=== PATIENT | male | born 1970 | race Caucasian/White ===

== ENCOUNTER 2019-01-06 01:09 | Observation (INO) ==
[~2019-01-06 01:09] MED LIST: ASPIRIN ONE
[2019-01-06] MEDS ORDERED: ASPIRIN PR ONE (01:18)
[2019-01-06] MEDS ORDERED: ASPIRIN PO ONE (01:18)
--- NOTE | 2019-01-06 01:22 | ED EKG INTERP ---
This chart was entered by Dior Henry Scribe, acting as scribe for Nguyen Hung MD. EKG Interpretation - EKG Time of EKG reading by physician:: 01:10 EKG Read and Signed by:: Nguyen Hung EKG Interpretation (*Must complete 3 of following elements*): Normal Rate: 73 Rhythm: nsr [place]: normal QRS: normal CA Interval: normal ST Wave: normal Attestation - Physician/ JAJA Attestation Patient care was provided by Advanced Practice Provider:: No The physician spent face to face time with patient:: Yes Advanced Practice Provider documentation review:: Supervising physician onsite and consulted in the evaluation and care of this patient. The physician did have a face to face encounter with the patient. This chart was documented by the indicated scribe, (Dior Henry, Rosamaria) and accurately reflects the services I performed and decisions made by Abhilash tracy Mai Huu, MD, as attested by the provider's signature.
[2019-01-06] MEDS ORDERED: MORPHINE IV ONE (01:27)
--- NOTE | 2019-01-06 01:27 | PROVIDER DOCUMENTATION ---
HPI-Chest Pain - General Chief Complaint: Chest Pain Stated Complaint: CHEST PAIN Time Seen by Provider: 01/06/19 01:19 Source: patient Allergies/Adverse Reactions: Patient Allergies Allergy/AdvReac Type Severity Reaction Status Date / Time No Known Allergies Allergy Verified 01/06/19 01:15 Home Medications: Home Medication List Medication Instructions Recorded Confirmed Last Taken Type Benazepril HCl 20 mg PO DAILY 01/06/19 01/06/19 Unknown History Hydrochlorothiazide 25 mg PO DAILY 01/06/19 01/06/19 Unknown History - History of Present Illness-CP Nature of Presenting Problem: 48 y/o male with history of HTN, Ex-smoker presented with chest pain associated with diaphoresis, and dyspnea, patient said the pain was sudden and steady, he felt tightness on his chest, hard to take deep breath Location: reports: substernal, central Chest Pain Radiation: reports: no radiation Quality of Pain: reports: tightness Severity in ED: moderate Onset/Duration: abrupt, 1/2 hour ago Timing: still present Context/Activities at Onset: reports: none Modifying Factors: improves with: nothing Associated Symptoms: reports: diaphoresis, shortness of breath. denies: abdominal pain Nitro Today/Relief: no nitro taken today Aspirin Treatment Today: no aspirin today Prior Chest Pain/Cardiac Workup: reports: no prior chest pain Similar Symptoms Previously?: No Recently Seen Here or By Another Healthcare Provider: No Review of Systems - Adult - REVIEW OF SYSTEMS - ADULT Constitutional: denies: fever Eyes: reports: no symptoms reported Ears, Nose, Mouth & Throat: reports: no symptoms reported Cardiovascular: reports: chest pain, palpitations Respiratory: reports: shortness of breath Gastrointestinal: reports: no symptoms reported, nausea Genitourinary: reports: no symptoms reported Musculoskeletal: reports: no symptoms reported Integumentary: reports: no symptoms reported Neurological: reports: no symptoms reported Psychiatric: reports: no symptoms reported Endocrine: reports: no symptoms reported Hematologic/Lymphatic: reports: no symptoms reported Allergic/Immunologic: reports: no symptoms reported Past History - Adult - PAST MEDICAL HISTORY-ADULT Review of Records: reports: Nursing Assessment Review Cardiovascular: reports: HTN Physical Exam-General - PHYSICAL EXAM-ADULT Initial Vital Signs Reviewed: Yes - CONSTITUTIONAL General Appearance: alert, no apparent distress - EYES Eyes: PERRL/EOMI - HEAD, EARS, NOSE, MOUTH & THROAT HENMT: normocephalic/atraumatic - NECK Neck: non-tender, full range of motion - RESPIRATORY Respiratory: chest non-tender, lungs clear, normal breath sounds - CARDIOVASCULAR Cardiovascular: normal peripheral pulses, regular rate, rhythm, no edema, no gallop, no JVD, no murmur - GASTROINTESTINAL (ABDOMEN) Abdominal Exam: normal bowel sounds, non tender - LYMPHATIC Lymphatic: no adenopathy - MUSCULOSKELETAL Back Exam: normal inspection, no CVA tenderness, no vertebral tenderness Extremity: normal range of motion, non-tender - SKIN Integumentary: warm/dry, diaphoresis - NEUROLOGIC Neurologic: assignment manager II-XII nml as tested, grossly normal, no motor/sensory deficits - PSYCHIATRIC Psych/Mental Status: normal mood/affect - HEART Score HEART Score: History: Highly Suspicious HEART Score: ECG: Normal HEART Score: Age: 45-65 Years HEART Score: Risk Factors for Atherosclerotic Disease: 1 or 2 Risk Factors HEART Score: Troponin: < or = Normal Limit Total HEART Score:: 4 Progress - PLAN OF CARE/RESULTS Progress/Plan/Lab Results: Vital Signs - 8 hr 01/06/19 01:11 Pulse Rate 73 Respiratory Rate 28 H Blood Pressure 148/111 O2 Sat by Pulse Oximetry 99 Laboratory Results - last 24 hr 01/06/19 01/06/19 01/06/19 01:20 01:20 01:20 WBC 6.54 RBC 4.94 Hgb 14.3 Hct 42.0 MCV 85.0 MCH 28.9 MCHC 34.0 RDW Std Deviation 14.4 Plt Count 205 MPV 11.0 H Immature Gran % (Auto) 0.3 Neut % (Auto) 52.5 Lymph % (Auto) 32.4 [place] % (Auto) 10.6 H Eos % (Auto) 3.7 Baso % (Auto) 0.5 Immature Gran # (Auto) 0.02 Neut # (Auto) 3.44 Lymph # (Auto) 2.12 [place] # (Auto) 0.69 H Eos # (Auto) 0.24 Baso # (Auto) 0.03 PT INR PTT (Actin FS) Sodium 141 Potassium 3.9 Chloride 100 Carbon Dioxide 26 Anion Gap 15 BUN 16 Creatinine 1.1 Estimated GFR/1.73 m2 > 60 BUN/Creatinine Ratio 15 Glucose 96 Calculated Osmolality 282 Calcium 9.6 Total Bilirubin 0.40 AST 21 ALT 23 Alkaline Phosphatase 94 Creatine Kinase 148 Troponin T Pob-Y-Gvlpxksqmgh Pept 29 Total Protein 6.7 Albumin 4.4 Globulin 2.0 Albumin/Globulin Ratio 2.0 Lipase 01/06/19 01/06/19 01/06/19 01:20 01:20 01:20 WBC RBC Hgb Hct MCV MCH MCHC RDW Std Deviation Plt Count MPV Immature Gran % (Auto) Neut % (Auto) Lymph % (Auto) [place] % (Auto) Eos % (Auto) Baso % (Auto) Immature Gran # (Auto) Neut # (Auto) Lymph # (Auto) [place] # (Auto) Eos # (Auto) Baso # (Auto) PT 11.8 INR 0.83 PTT (Actin FS) 28.9 Sodium Potassium Chloride Carbon Dioxide Anion Gap BUN Creatinine Estimated GFR/1.73 m2 BUN/Creatinine Ratio Glucose Calculated Osmolality Calcium Total Bilirubin AST ALT Alkaline Phosphatase Creatine Kinase Troponin T < 0.010 Yng-Z-Fusthpbmlwo Pept Total Protein Albumin Globulin Albumin/Globulin Ratio Lipase 24 01/06/19 01/06/19 03:32 03:32 WBC RBC Hgb Hct MCV MCH MCHC RDW Std Deviation Plt Count MPV Immature Gran % (Auto) Neut % (Auto) Lymph % (Auto) [place] % (Auto) Eos % (Auto) Baso % (Auto) Immature Gran # (Auto) Neut # (Auto) Lymph # (Auto) [place] # (Auto) Eos # (Auto) Baso # (Auto) PT INR PTT (Actin FS) Sodium Potassium Chloride Carbon Dioxide Anion Gap BUN Creatinine Estimated GFR/1.73 m2 BUN/Creatinine Ratio Glucose Calculated Osmolality Calcium Total Bilirubin AST ALT Alkaline Phosphatase Creatine Kinase 137 Troponin T < 0.010 Twy-N-Vifacxqwfpo Pept Total Protein Albumin Globulin Albumin/Globulin Ratio Lipase Orders Category Date Time Status Cardiac Monitoring DIRECTED Care 01/06/19 01:18 Active Oxygen Therapy- ED Nursing DIRECTED Care 01/06/19 01:18 Active Saline Loc NOW Care 01/06/19 01:18 Active CHEST-2 VIEWS [RAD] Stat Exams 01/06/19 01:18 Taken CTA [CT ANGIOGRM PULMONARY ARTERIES] [CT] Stat Exams 01/06/19 01:56 Taken CBC WITH ELECTRONIC DIFF [HEME] Stat Lab 01/06/19 01:20 Completed CK PROFILE [SP CHEM] Stat Lab 01/06/19 01:20 Completed CK PROFILE [SP CHEM] Stat Lab 01/06/19 03:32 Completed COMPREHENSIVE METABOLIC PANEL [CHEM] Stat Lab 01/06/19 01:20 Completed LIPASE [CHEM] Stat Lab 01/06/19 01:20 Completed PRO B-NATRIURETIC PEPTIDE Stat Lab 01/06/19 01:20 Completed PROTIME WITH INR [COAG] Stat Lab 01/06/19 01:20 Completed PTT [COAG] Stat Lab 01/06/19 01:20 Completed TROPONIN T Stat Lab 01/06/19 01:20 Completed TROPONIN T Stat Lab 01/06/19 03:32 Completed Aspirin Med 01/06/19 01:18 Discontinued 300 mg DE NOW ONE Aspirin Med 01/06/19 01:09 Discontinued 325 mg .ROUTE .STK-MED ONE Aspirin Med 01/06/19 01:18 Discontinued 325 mg PO NOW ONE Morphine Med 01/06/19 01:27 Discontinued 4 mg IV NOW ONE Nitroglycerin Sl [Nitroglycerin] Med 01/06/19 01:28 Discontinued 0.4 mg SL NOW ONE Ondansetron [Zofran] Med 01/06/19 01:28 Discontinued 4 mg IV NOW ONE chest [CP/SOB/Palp >45 yrs of Age] Stat Oth 01/06/19 01:18 Ordered EKG [EKG] Stat Ther 01/06/19 01:18 Ordered EKG [EKG] Stat Ther 01/06/19 01:25 Ordered EKG [EKG] Stat Ther 01/06/19 03:34 Ordered Result Diagrams: 01/06/19 01:20 01/06/19 01:20 - CT/MRI 1 CT Study: Thorax (negative for PE, dissection or aneurysm) - CONSULTS/PCP/HOSPITALIST Notification #1 *Consult/PCP/Hospitalist*: Dr Davalos Time Discussed: 04:18 Consult Disposition: Admit Departure - Departure Date of Disposition Decision: 01/06/19 Time of Disposition Decision: 04:17 DIAGNOSIS: Chest pain Disposition: ADMITTED INPATIENT 09 Certified Medical Emergency: Emergent Condition: Good Referrals and Follow-Ups: None,PCP [Primary Care Provider] - - Critical Care Note This patient required my direct & personal management of CC.: No Attestation - Physician/ JAJA Attestation Patient care was provided by Advanced Practice Provider:: No The physician spent face to face time with patient:: Yes Advanced Practice Provider documentation review:: Supervising physician onsite and consulted in the evaluation and care of this patient. The physician did have a face to face encounter with the patient.
[2019-01-06] MEDS ORDERED: ZOFRAN IV ONE (01:28)
[2019-01-06] MEDS ORDERED: NITROGLYCERIN SL ONE (01:28)
[2019-01-06 01:33] LABS: BASO# 0.03 X1000 (0.0-0.2); BASO% 0.5 % (0.0-0.8); EOS# 0.24 X1000 (0.0-0.7); EOS% 3.7 % (0.0-10.0); HEMOGLOBIN 14.3 g/dL (14.0-18.0); IMM GRAN# 0.02 X1000 (0.0-0.04); IMM GRAN% 0.3 % (0.0-0.5); LYMPH# 2.12 X1000 (1.2-3.4); LYMPH% 32.4 % (20.5-51.1); MCH 28.9 PG (27-31); MONO# 0.69 X1000 (0.11-0.59); MONO% 10.6 % (1.7-9.3); NEUT# 3.44 X1000 (1.4-6.5); NEUT% 52.5 % (42.2-75.2); PLT 205 X1000 (130-400); RBC 4.94 XMIL (4.7-6.1); RDW 14.4 % (11.5-14.5); WBC 6.54 X1000 (4.8-10.8)
[2019-01-06 01:37] LABS: INR 0.83; PROTIME 11.8 Seconds (11.0-16.0)
[2019-01-06 01:38] LABS: PTT 28.9 Seconds (22.3-41.8)
[2019-01-06 01:48] LABS: AGAP 15; ALBUMIN 4.4 g/dL (3.5-5.0); ALKALINE PHOSPHATASE 94 U/L (32-122); BUN 16 mg/dL (8-22); CALCIUM 9.6 mg/dL (8.8-10.2); CHLORIDE 100 mmol/L (98-107); CK PROFILE 148 U/L (24-204); COSMO 282; CREATININE 1.1 mg/dL (0.7-1.2); ESTIMATED GFR > 60; GLUCOSE 96 mg/dL (70-104); GOT 21 U/L (10-34); GPT 23 U/L (10-44); POTASSIUM 3.9 mmol/L (3.5-5.1); SODIUM 141 mmol/L (136-145); TCO2 26 mmol/L (25-35); TOTAL PROTEIN 6.7 g/dL (6.3-8.3)
[2019-01-06] MEDS ORDERED: ZOFRAN IV PRN (04:21)
--- NOTE | 2019-01-06 07:18 | Diag Imaging Result Doc PS360 ---
EXAM: CT ANGIOGRM PULMONARY ARTERIES - 01/06/2019 HISTORY: chest pain TECHNIQUE: CT angiogram pulmonary arteries with intravenous contrast. Axial, 2-D coronal MIP, and 3-D MIP images are obtained. COMPARISON: None. FINDINGS: There are no filling defects identified pulmonary arteries. There is no indication of aortic dissection. The lungs appear essentially clear except for mild dependent atelectasis. There is no consolidation, pleural effusion, or pneumothorax identified. There are no abnormally enlarged mediastinal lymph nodes identified. Included sections of the upper abdomen show apparent hepatomegaly with fatty infiltration of liver. There is uncomplicated diverticulosis at the visualized colon. IMPRESSION: No evidence of pulmonary embolism. No evidence of pneumonia. No pneumothorax. The on-call radiologist provided preliminary results at 2:44 AM on 01/06/2019. Electronically signed by Enzo Briseno 01/06/2019 7:16 AM
--- NOTE | 2019-01-06 07:20 | Diag Imaging Result Doc PS360 ---
EXAM: CHEST-2 VIEWS - 01/06/2019 HISTORY: chest pain TECHNIQUE: Chest two views COMPARISON: None. FINDINGS: Heart size appears within normal limits. Inspiration is mildly shallow, with associated mild crowding of basilar markings. The remainder of the lungs appear clear. There is no pleural effusion or pneumothorax identified. IMPRESSION: Somewhat shallow inspiration, with mild crowding of basilar markings. No other evidence of acute disease. Electronically signed by Enzo Briseno 01/06/2019 7:18 AM
[2019-01-06] MEDS ORDERED: TORADOL IV PRN (07:58)
--- NOTE | 2019-01-06 09:45 | EKG Report ---
Test Performed on : 01/06/2019 03:22:05 AM Test Reason : CP Blood Pressure : / mmHG Vent. Rate : 067 BPM Atrial Rate : 067 BPM P-R Int : 136 ms QRS Dur : 096 ms QT Int : 418 ms P-R-T Axes : 050 017 050 degrees QTc Int : 441 ms Normal sinus rhythm. Nonspecific T wave abnormality Abnormal ECG When compared with ECG of 06-JAN-2019 01:17, (Unconfirmed) No significant change was found Unconfirmed Result
--- NOTE | 2019-01-06 09:46 | EKG Report ---
Test Performed on : 01/06/2019 01:17:05 AM Test Reason : CP Blood Pressure : / mmHG Vent. Rate : 078 BPM Atrial Rate : 078 BPM P-R Int : 120 ms QRS Dur : 084 ms QT Int : 396 ms P-R-T Axes : 061 061 072 degrees QTc Int : 451 ms Normal sinus rhythm. Normal ECG No previous ECGs available Unconfirmed Result
--- NOTE | 2019-01-06 09:47 | EKG Report ---
Test Performed on : 01/06/2019 01:10:43 AM Test Reason : CP Blood Pressure : / mmHG Vent. Rate : 073 BPM Atrial Rate : 073 BPM P-R Int : 130 ms QRS Dur : 084 ms QT Int : 392 ms P-R-T Axes : 053 050 060 degrees QTc Int : 431 ms Normal sinus rhythm. Normal ECG No previous ECGs available Unconfirmed Result
--- NOTE | 2019-01-06 10:56 | EKG Report ---
Test Performed on : 01/06/2019 10:52:17 AM Test Reason : chest pain Blood Pressure : / mmHG Vent. Rate : 083 BPM Atrial Rate : 083 BPM P-R Int : 130 ms QRS Dur : 102 ms QT Int : 374 ms P-R-T Axes : 056 026 063 degrees QTc Int : 439 ms Normal sinus rhythm. ST elevation, consider inferior injury or acute infarct ACUTE AK / STEMI Abnormal ECG When compared with ECG of 06-JAN-2019 03:22, (Unconfirmed) No significant change was found Unconfirmed Result
--- NOTE | 2019-01-06 15:37 | CARDIOLOGY CONSULTATION ---
DATE: 01/06/2019 HISTORY OF PRESENT ILLNESS: Mr. Oliver is a 48-year-old white male with a history of hypertension, tobacco abuse. He quit December 17. He presented with a complaint of shortness of breath and pressure/tightness in his chest that began last night while sitting on the couch. This has persisted continuously since that time with some waxing and waning. This morning, he has a lot of discomfort to palpation of the chest area. There was never any exertional component to this. He has not had any recent fevers. 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 He denies any orthopnea. He has not had any other exertional chest pains. PAST MEDICAL HISTORY: Significant for hypertension. He is a patient of Dr. Page. He has no documented diagnosis of COPD, but has smoked for 30 to 35 years. SOCIAL HISTORY: He is recently . He recently quit smoking around 3 weeks ago after a 30 to 35 year-history of smoking. 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 FAMILY HISTORY: Significant for hypertension, as well as coronary disease in both parents. REVIEW OF SYSTEMS: A 10 system review of systems is negative, except for those things mentioned in HPI. PHYSICAL EXAMINATION: Vital Signs: He is afebrile. His heart rate is 90. His blood pressure is 108/61. General: He is in no acute distress. HEENT: Oropharynx is moist. Normal dentition. Eye examination shows pink conjunctivae, white sclerae. Neck: Examination shows no obvious thyromegaly or thyroid tenderness. Cardiovascular: He sounds to be in a regular rate and rhythm. He has no obvious murmurs. He has no S3. He has no lower extremity edema. Chest: Exam is notable for prominent bilateral end-expiratory wheezes. He has no real increased work of breathing. Abdomen: Soft, nontender, nondistended. He has no obvious organomegaly. Skin Exam: Warm and dry throughout without any rashes. Neurological: Moving all extremities well. He has no lateralizing deficits. PERTINENT DATA: His EKG on the twenty-first at 1:17 in the morning shows sinus rhythm, no ischemic changes. Second EKG occurring at 1:10 a.m. shows sinus rhythm, no signs of ischemic changes. EKG occurring at 3:22 shows sinus rhythm, no ischemic changes. No signs of injury. Final EKG at 10:52 this a.m. shows sinus rhythm, no ischemic changes, no acute signs of an injury pattern. His pulmonary arteriogram shows no evidence of pneumonia or pulmonary embolism. LAB DATA: Shows a white count of 6.5, hematocrit 42, platelet count 205. Sodium 141, potassium 3.9. BUN 16, creatinine is 1.1. His proBNP is normal. His cardiac enzymes have been negative times multiple sets. ASSESSMENT: Mr. Oliver is a 48-year-old gentleman, who presented with symptoms of chest tightness and soreness and marked bilateral end-expiratory wheezes. PLAN: He sounds like he is in COPD exacerbation. We will check an echocardiogram. I have checked a CRP just to make an assessment for possible pericarditis. If this is unremarkable, then I would recommend treatment of him for his COPD flare up, and I will plan on seeing him as an outpatient for cardiac evaluation. cc: Kavin Neumann MD
[2019-01-06] MEDS ORDERED: DUONEB (A & A) INH PRN (17:02)
[2019-01-06] MEDS: PEPCID PO SCH ×2 (17:42→23:34)
[2019-01-06] MEDS: SOLU-MEDROL IV SCH (17:42)
[2019-01-06] MEDS ORDERED: ATIVAN IV PRN (17:43)
[2019-01-06] MEDS: MOTRIN PO SCH ×2 (17:43→23:34)
--- NOTE | 2019-01-06 18:15 | HISTORY AND PHYSICAL ---
CHIEF COMPLAINT: Chest pain, shortness of breath. HISTORY OF PRESENT ILLNESS: This is a 48-year-old gentleman with a history of hypertension, prior tobacco use who presents to the emergency room complaining of a sudden onset of chest pressure and shortness of breath. He presented to the emergency room within 30 minutes of this episode. On arrival to the emergency room, he had O2 sats of 99%. He respirations were in the 26 to 28 range. At this time his sats were at 98-100% and breath sounds were clear per emergency room MD documentation. Troponins were negative and his EKGs revealed sinus rhythm at a rate of 78 to 80. The chest pain has been continuous with some waxing and waning. He does state that when he relaxes and takes shallow breaths he has no pain. He does complain of pain with deep breaths, coughing, movement and palpation. He denied any exertional component, any prior episodes, any fevers or chills. He denies any orthopnea or PND or cough. PAST MEDICAL HISTORY: Hypertension. He does not carry a diagnosis of COPD, although he has smoked for 35 years, stopping on December 17. SOCIAL HISTORY: He is . He works in an [employer] plant. He denies any illicit drug use. He has occasional recreational alcohol. He smoked about a pack of cigarettes a day for 35 years. He did stop on December 17. ALLERGIES: No known drug allergies. HOME MEDICATIONS: Benazepril 20 mg p.o. daily and hydrochlorothiazide 25 mg p.o. daily. REVIEW OF SYSTEMS: Discussed with patient, with pertinent positives stated in the HPI. He denied any syncope, dizziness, any palpitations, any PND or orthopnea, any night sweats , any nausea, vomiting, diarrhea, constipation, black or bloody vomitus or stools, any hematuria, dysuria, frequency, urgency. PHYSICAL EXAMINATION: GENERAL: This is a 48-year-old gentleman who is lying flat in the bed watching TV in no distress. VITAL SIGNS: Blood pressure is 108/61, with a heart rate of 90, respirations are 19, temperature is 98.2 oral, with O2 sats that are 100% on 2 L nasal cannula. He is 93% resting and walking on room air. EYES: Pupils are equal, round, react to light. EOMs are intact. Sclerae anicteric. HEENT: Head is normocephalic, atraumatic. Mucous membranes are moist. NECK: Supple, with trachea midline. CARDIOVASCULAR: Regular rate and rhythm. S1 and S2 appreciated. No obvious murmurs. He has no lower extremity edema with peripheral pulses palpable x 4 extremities. PULMONARY: Breath sounds are clear with no increased work of breathing noted. Chest rises and falls symmetrically with respiration. Chest wall is tender to palpation. GASTROINTESTINAL: Abdomen is soft, nontender, nondistended. Bowel sounds in all 4 quadrants. NEUROLOGIC: He is alert oriented x 3. SKIN: Warm and dry, with no rashes or lesions noted. LABS: WBC is 6.5, with a hemoglobin of 14.3, hematocrit 42 and platelets of 205 ,000. Sodium 141, potassium 3.9, BUN 16, creatinine 1.1, with a glucose of 96. Troponins are negative on multiple occasions. Chest x-ray revealed shallow inspiration with mild crowding of basilar markings. No other evidence of acute disease. Pulmonary arteriogram revealed no evidence of pulmonary embolism. He does have some mild dependent atelectasis with no consolidation, pleural effusion or pneumothorax identified. EKGs were performed at 1:10, 1:17, 3:22 and 10:52 all revealed sinus rhythm, no signs of ischemic changes. No signs of injury. ASSESSMENT: This is a 48-year-old gentleman who presents with chest tightness and soreness. 1. Chest pain. 2. Costochondritis. 3. History of hypertension. 4. Shortness of breath. PLAN: The patient has been admitted to the Medical/Surgical floor and placed on telemetry, which we will continue. We will identify his home medications and continue these as appropriate. We will give Toradol and evaluate for any change in pain. We will consult Cardiology. If Toradol does relieve the pain, we will give Motrin 600 mg q.6 hours with Pepcid 20 mg q.6 hours x 4 doses for inflammation. Further treatments pending hospital course. Dictated by ROBB Enciso for Kelechi Hughes MD This chart was documented by, ROBB Enciso and accurately reflects the services performed, treatment plan and medical decisions as attested by the providers signature Kelechi Hughes MD. cc: ROBB Encisoam, MD [facility]
[2019-01-06] MEDS: DUONEB (A & A) INH SCH ×2 (19:29→23:30)
--- NOTE | 2019-01-07 01:29 | HISTORY AND PHYSICAL ---
ADDENDUM: Patient seen and examined by myself. Full note dictated and discussed with nurse practitioner. The patient presented to the emergency department with shortness of breath and chest tightness. He was initially admitted for chest pain rule out. It certainly appears as though his chest pain is more noncardiac in nature as it is reproducible by palpation of his chest. States that he had lots of episodes in the ER of wheezing, shortness of breath, chest tightness, and could not catch his breath. PLAN: Overall feel as though his chest pain is noncardiac in nature, most likely related to his pulmonary distress which has improved. We will continue to follow him in the hospital. Treat his pulmonary situation. His blood pressure is elevated. We will treat that accordingly and we will follow. cc: Kelechi Hughes MD
[2019-01-07] MEDS: SOLU-MEDROL IV SCH ×2 (01:30→10:56)
[2019-01-07] MEDS: DUONEB (A & A) INH SCH ×3 (03:16→11:56)
[2019-01-07 05:17] VITALS: BP 106/58
[2019-01-07] MEDS: PEPCID PO SCH ×2 (05:21→13:09)
[2019-01-07] MEDS: MOTRIN PO SCH ×2 (05:21→13:09)
[2019-01-07 06:13] LABS: HEMATOCRIT 40.8 % (42.0-52.0); HEMOGLOBIN 13.4 g/dL (14.0-18.0); MCH 28.1 PG (27-31); MCHC 32.8 g/dL (33-37); MCV 85.5 FL (81-99); MPV 11.3 FL (7.4-10.4); RBC 4.77 XMIL (4.7-6.1); WBC 10.96 X1000 (4.8-10.8)
[2019-01-07 06:31] LABS: AGAP 14; ALBUMIN 4.1 g/dL (3.5-5.0); ALKALINE PHOSPHATASE 94 U/L (32-122); BUN 16 mg/dL (8-22); CALCIUM 9.7 mg/dL (8.8-10.2); CHLORIDE 102 mmol/L (98-107); COSMO 287; ESTIMATED GFR > 60; GLUCOSE 255 mg/dL (70-104); GOT 18 U/L (10-34); GPT 23 U/L (10-44); SODIUM 139 mmol/L (136-145); TCO2 23 mmol/L (25-35); TOTAL PROTEIN 6.7 g/dL (6.3-8.3)
[2019-01-07] MEDS ORDERED: LOTENSIN PO SCH (09:00)
[2019-01-07] MEDS ORDERED: HYDROCHLOROTHIAZIDE PO SCH (09:00)
--- NOTE | 2019-01-07 19:43 | ECHO REPORT ---
ORDER DATE: 01/06/2019 INDICATION: Shortness of breath. Possible COPD. FINDINGS: 1. Right atrium appears normal in size. 2. Trace tricuspid regurgitation. Insufficient data to estimate RV systolic pressure. 3. Normal RV size and systolic function. 4. Trace pulmonic insufficiency. 5. Normal left atrial size with a dimension of 3.5 cm. 6. No mitral prolapse. Trace mitral regurgitation. 7. Normal LV size, end-diastolic dimension of 5.3. Normal wall thicknesses, with posterior and interventricular septal wall thickness of 0.9 and 0.8 cm, respectively. Normal LV systolic function. Estimated EF of 65% with normal wall motion. 8. The aortic valve opens well. No evidence of stenosis or insufficiency. 9. The aorta appears normal in visualized segments. 10. No pericardial effusion seen. cc: Kavin Neumann MD
--- NOTE | 2019-01-08 09:36 | DISCHARGE SUMMARY ---
ADMISSION DATE: 01/06/2019 DISCHARGE DATE: 01/07/2019 PRIMARY CARE PHYSICIAN: Dr. Page. DIAGNOSES: 1. Chest tightness and soreness. 2. Costochondritis. 3. Hypertension. 4. Shortness of breath. 5. Probable chronic obstructive pulmonary disease exacerbation. DIAGNOSTICS: 1. Chest x-ray revealed shallow inspiration with mild crowding of basilar markings. 2. Pulmonary arteriogram revealed no evidence of pulmonary embolism. No evidence of pneumonia. No pneumothorax. CONSULTANTS: 1. Dr. Kavin Neumann. 2. Cardiology. HOSPITAL COURSE: Mr. Oliver presented to the hospital complaining of shortness of breath and chest pressure tightness that began while sitting still. By the time he presented to the emergency room, the pain was only present with movement, cough and palpation. EKGs x4 revealed sinus rhythm with no ischemic changes. No acute signs of injury. A CTA pulmonary revealed no evidence of pneumonia or pulmonary embolism. On the evening after admission, He was found to have bilateral end-expiratory wheezes for which he was started on Solu- Medrol to taper, as well as DuoNebs. He did state that he improved greatly after the steroids in the first DuoNeb. Breath sounds are clear. He was given Toradol, then Pepcid and ibuprofen for his costochondritis. He states this has greatly improved, and thankfully he is ready for discharge. He was evaluated by Dr Neumann, cardiology who felt this was a COPD exacerbation Of note, he does not carry a diagnosis of COPD. DISCHARGE PHYSICAL EXAMINATION: Vital Signs: Blood pressure is 106/58 with a heart rate of 97, respirations are 20, temperature is 98.1 degrees, O2 saturations on room air are 92 to 98 percent. Cardiovascular: Regular rate and rhythm. S1 and S2 appreciated. He has no lower extremity edema with peripheral pulses palpable x4 extremities. Pulmonary: Breath sounds are clear, although diminished with no increased work of breathing noted. Chest does rise and fall symmetrically with respiration. His chest wall is tender to palpation, although he states this is improved. Gastrointestinal: Abdomen is soft, nontender, nondistended. Bowel sounds in all 4 quadrants. Neurologic: He is alert and oriented x3. Skin: Warm and dry with no rashes or lesions noted. DISCHARGE MEDICATIONS: 1. Benazepril 20 mg p.o. daily. 2. Hydrochlorothiazide 25 mg p.o. daily. 3. Duexis 1 p.o. q. 12 hours for 5 days as needed. 4. Medrol Dosepak as directed. FOLLOW-UP: 1. He needs to call his primary care physician Thursday to schedule appointment to be seen next week. 2. Dr. K[facility] and 3 to 4 weeks after discharge. DISCHARGE DISPOSITION: He is being discharged home in stable condition with family members. TIME SPENT: This is a greater than 30 minute discharge. Dictated by ROBB Enciso for Kelechi Hughes MD This chart was documented by, ROBB Enciso and accurately reflects the services performed, treatment plan and medical decisions as attested by the providers signature Kelechi Hughes MD. cc: ROBB Enciso MD Timothy P. Weirich, MD [facility]ITAL[facility]
--- NOTE | 2019-01-08 18:59 | DISCHARGE SUMMARY ---
ADMISSION DATE: 01/06/2019 DISCHARGE DATE: 01/07/2019 ADDENDUM: Patient seen and examined by myself, full note dictated and discussed with nurse practitioner. On discharge patient is awake, alert, he is in no current respiratory distress. He did have an episode of wheezing while he was in the hospital. Certainly agree with Cardiology that his chest pain is noncardiac in nature as it is reproducible to palpation, hurts when he takes a deep breath and occurred after he had a wheezing episode. He does have significant panic as well. We will discharge him home. He will follow up outpatient with his primary care. Discussed with him the importance of continue to stop smoking. cc: Kelechi Hughes MD
== END 2019-01-07 12:52 | disposition home or self-care (01) ==
LOC: P.ED 01:09 → P.MEDSURG 01:09 → SUATTDRO 06:32 → P.MEDSURG 18:38
PROVIDERS: ATTEND Family Medicine
CPT/HCPCS: 71020; 71046; 71275; 80053; 82550; 83690; 83880; 84484; 85025; 85027; 85610; 85730; 86140; 93005; 93306; 94640; 94761; 94799; 96374; 99285; A9270; C8929; J1885; J2060; J2270; J2405; J2930; Q9957; Q9967